=== PATIENT | male | born 1950 | race Caucasian/White ===

== ENCOUNTER 2016-06-03 10:40 | Inpatient (IN) | payer MEDICARE, OTHER ==
--- NOTE | ~2016-06-03 | EKG ---
PATIENT: RACHAEL FABIAN UNIT #: [id number] Ventricular Rate: 80 BPM Atrial Rate: 80 BPM P-R Interval: 170 ms QRS Duration: 150 ms Q-T Interval: 440 ms QTC Calculation(Bezet): 507 ms P [place]: 71 degrees Calculated R [place]: -142 degrees Calculated T [place]: 21 degrees Diagnosis Line: Sinus rhythm with nonconducted P waves Diagnosis Line: Right bundle branch block Diagnosis Line: Left anterior fascicular block Diagnosis Line: Abnormal ECG Diagnosis Line: No previous ECGs available Diagnosis Line: Confirmed by GORGE PANCHAL MD ([id number]) on Diagnosis Line: 06/04/2016 6:45:40 AM INTERPRETING MD: SHANNEN
--- NOTE | ~2016-06-03 | DS ---
Unit #: [id number] #: [id number] Patient: RACHAEL FABIAN [id number] [address] [address] [id number] I MR#: [id number] NAME: RACHAEL FABIAN. ROOM: 327 Age: 65 Sex: M Admission Date: 06/03/2016 : 1950 Discharge Date: Attending Physician: Sari Vasquez M.D. Primary Care Physician: Brigida Epps M.D. DISCHARGE SUMMARY DISCHARGE DIAGNOSES 1. Acute on chronic hypoxic respiratory failure. 2. Chronic obstructive pulmonary disease with exacerbation. 3. Bilateral leg cellulitis with venostasis. 4. Mild hyponatremia. 5. Hypertension uncontrolled. 6. Diabetes mellitus type 2 uncontrolled. 7. Smoking. CONSULTANTS None. PROCEDURES None. DIAGNOSTIC STUDIES LABORATORY DATA: Glucose 78, sodium 136, potassium 4.1, creatinine 0.5, WBC 12.3, hemoglobin 13.6, platelets 183. IMAGING STUDIES: Chest x-ray shows no acute cardiopulmonary disease. ALLERGIES Tomatoes. DISCHARGE MEDICATIONS 1. Albuterol two puffs inhalation 3 times daily p.r.n. shortness of breath. 2. Albuterol mini-nebs inhalation 3 times daily. 3. Losartan/hydrochlorothiazide 100/25 tablet p.o. daily. 4. Metformin 500 p.o. daily. 5. Nicotine 21 mg transdermal [id number]-[id number]. 6. Hydralazine 25 p.o. b.i.d. 7. Prednisone tapering dose. 8. Doxycycline 100 p.o. b.i.d. for three more days. HOSPITAL COURSE 65-year-old admitted because of shortness of breath and acute on chronic hypoxic respiratory failure presented on admission. Patient has COPD and currently he is on three L. I am going to check home O2 evaluation. COPD with exacerbation: Stated on IV Solu-Medrol and DuoNeb. Continue with prednisone tapering dose and albuterol. According to patient he cannot afford Symbicort or Advair. He does not want me to give any prescriptions. He wants to follow Dr. Epps as an outpatient. Unit #: [id number] #: [id number] Patient: RACHAEL FABIAN Bilateral cellulitis: No open wound. No cultures. Patient received clindamycin. I am going to discharge him on doxycycline, which can help him with COPD also. Hypertension uncontrolled: Added hydralazine. Diabetes mellitus, type 2 uncontrolled: Continue his metformin. He has low sugars, so I am not going to give him glimepiride for now. DISPOSITION Discharge home. DISCHARGE INSTRUCTIONS Check home O2 needs. He does take 2 L at nighttime. Follow with family physician in one week time. Dictated by... Kyung Bennett/tatiana TD: 06/06/2016 12:50 JOB #: [id number] DISCHARGE SUMMARY Page 1 of 1 X Sari Vasquez MD X DISCHARGE SUMMARY
--- NOTE | ~2016-06-03 | HP ---
Unit #: [id number] #: [id number] Patient: RACHAEL FABIAN [id number] [address] [address] [id number] I MR#: [id number] NAME: RACHAEL FABIAN. ROOM: 46867 Age: 65 Sex: M Admission Date: 06/03/2016 : 1950 Attending Physician: Ministerio Chao M.D. Primary Care Physician: Brigida Epps M.D. HISTORY AND PHYSICAL CHIEF COMPLAINT Shortness of breath and feet swelling. HISTORY OF PRESENT ILLNESS The patient is a 65-year-old male with a history of diabetes mellitus and COPD on home oxygen two liters at night and active smoking. The patient was brought to the emergency room from the PCP office. The patient stated the patient has been having leg swelling associated with redness and pain on the bilateral lower extremities. The patient stated it started last Monday initially from the left leg and then went into the right leg. The patient went to the PCP office earlier today and was found to have shortness of breath with respiratory distress with 88% saturation at room air. The patient is being admitted for the above reason. The patient denies any nausea, vomiting, fever, chills, trauma or any insect bite. PAST MEDICAL HISTORY History of hypertension, diabetes, COPD. PAST SURGICAL HISTORY Right knee surgery. SOCIAL HISTORY The patient smokes two and a half packs per day. The patient denies any alcohol or any illicit drug abuse. FAMILY HISTORY Reviewed and none. ALLERGIES Tomato. HOME MEDICATION 1. Metformin. 2. Glimepiride. 3. Losartan/hydrochlorothiazide. 4. Albuterol. REVIEW OF SYSTEMS A 14-point review of systems was performed and only pertinent positive findings are described above. Remaining are negative. PHYSICAL EXAMINATION GENERAL APPEARANCE: The patient is lying on the bed, not in acute distress. Unit #: [id number] #: [id number] Patient: RACHAEL FABIAN VITAL SIGNS: Temperature 97.4. Pulse 88. Respiratory rate 18. Blood pressure 146/68. Sating 88% at room air. HEENT: Head: Atraumatic, normocephalic. ENT: Pupils equal, round and reactive to light and accommodation. Extraocular movements are intact. NECK: Supple. Decreased air entry at the bases. HEART: Regular rate and rhythm. ABDOMEN: Soft. Positive bowel sounds. EXTREMITIES: Positive for venostasis bilateral lower extremities with minimal erythema and swelling of the left leg more compared to the right. NEUROLOGIC: Alert, awake, oriented. No gross focal motor deficit. DIAGNOSTIC STUDIES LABORATORY: Chemistry: Glucose 78, BUN 17, creatinine 0.8, sodium 132, potassium 4, chloride 93, bicarb 30, calcium 8.9, total protein 7.4, total bilirubin one, AST 15, ALT 13, alkaline phosphatase 66. BNP 46. INR is one. Troponin less than 0.05. WBC 9.3, hemoglobin 14.8, hematocrit 44.6, platelets 201. IMAGING: Chest x-ray shows no acute cardiopulmonary findings. No appreciable changes from 12/28/2014. ASSESSMENT 1. COPD exacerbation. 2. Cellulitis. 3. Venostasis. 4. Hyponatremia. PLAN To admit the patient to observation with telemetry. Continue with IV steroids, Solu-Medrol 40 mg q.8, IV antibiotics with clindamycin 500 mg q.8. Check the inflammatory markers, [employer], CRP. Continue with sliding scale and Accu-Cheks and continue with DuoNeb q.4 p.r.n. Nicotine patch for the smoking and further recommendations following as more lab results are available. Dictated by Kyung Adams TD: 06/03/2016 14:15 JOB #: [id number] HISTORY AND PHYSICAL Page 1 of 1 X X HISTORY AND PHYSICAL
--- NOTE | ~2016-06-03 | CR72 ---
[facility] A Service of [facility] & [facility] RADIOLOGY TEXT RESULTS PATIENT: RACHAEL FABIAN LOCATION: [facility] [id number] : [birth year] UNIT #: [id number] AGE: [address]: DONAVON SANCHEZ MD SEX: M ORDER DR: [id number] [facility] [address] [place], [place] [address] [id number] MR#: [id number] Acc #: [id number] NAME: RACHAEL FABIAN : 1950 SEX: M STUDY DATE/TIME: 06/03/2016 10:34 UNIT: [facility] ROOM: STUDY DESCRIPTION: CR Chest Single View Portable Attending Physician: Rachael Grewal M.D. Ordering Physician: Rachael Grewal M.D. Primary Care Physician: Brigida Epps M.D. MEDICAL IMAGING REPORT This report is preliminary unless electronic signature is present EXAM Chest portable, 06/03/2016 10:34 hours HISTORY 65-year-old man complaining of shortness of air today with bilateral leg swelling and redness. History of hypertension and COPD. COMPARISON 12/29/2014 FINDINGS 2 portable upright views of the chest demonstrate normal heart size. The mediastinal, hilar, and aortic contours are normal. The lungs demonstrate no acute pulmonary density or pleural effusion. IMPRESSION No acute cardiopulmonary findings. No appreciable change from 12/29/2014. Dictated by... Ioana Hurd M.D. THIS IS AN ELECTRONICALLY VERIFIED REPORT Ioana Hurd M.D. at 06/03/2016 2:32 PM Jose Luis TD: 06/03/2016 11:24 JOB #: [id number] MEDICAL IMAGING REPORT Page 1 of 1 COPY
[~2016-06-03 10:40] MED LIST: ASPIRIN; BACTRIM DS TABL1 TA1 PO; KEFLEX500 MG PO; LORTAB 5/500 TA1 TA1 PO; METFORMIN; METFORMIN HCL500 M1 PO; NO MEDICATIONS; ZOCOR
[2016-06-03 11:16] LABS: POC - CKMB 1.4 ng/mL (0.0-7.9); POC - TROPONIN <0.05 ng/mL (<=0.05)
[2016-06-03 11:16] LABS: BASOPHIL# 0.1 X10e3 (0-0.3); BASOPHIL% 0.6 % (0-2.5); EOSINOPHIL# 0.1 X10e3 (0-0.7); EOSINOPHIL% 1.5 % (0.0-7.0); HEMATOCRIT 44.6 % (38.0-50.0); HEMOGLOBIN 14.8 gm/dL (13.0-16.0); LYMPHOCYTE# 1.8 X10e3 (1.0-3.5); LYMPHOCYTE% 19.6 % (17.0-45.0); MEAN CORPUSCULAR HEMOGLOBIN 30.2 PG (28-34); MEAN CORPUSCULAR HGB CONC 33.1 g/dL (30-36); MEAN PLATELET VOLUME 9.1 FL (6.5-11.5); MONOCYTE% 11.3 % (3.0-12.0); NEUTROPHIL# 6.2 X10e3 (1.5-7.1); PLATELET COUNT 201 X10e3 (140-420); RED CELL DISTRIBUTION WIDTH 16.1 % (11.0-15.5); WHITE BLOOD COUNT 9.3 X10e3 (4.0-10.5)
[2016-06-03 11:17] LABS: DIFF IND NO
[2016-06-03] MEDS ORDERED: GLIMEPIRIDE2 MG PO (11:22)
[2016-06-03] MEDS ORDERED: METFORMIN HCL500 M1 PO (11:22)
[2016-06-03] MEDS ORDERED: LOSARTAN-HCTZ1 EAC3 PO (11:23)
[2016-06-03] MEDS ORDERED: ALBUTEROL17 GM INH (11:23)
[2016-06-03 11:29] LABS: PROTHROMBIN TIME (PATIENT) 10.7 SECONDS (9.6-11.5)
[2016-06-03 11:30] LABS: PARTIAL THROMBOPLASTIN TIME 31.3 SECONDS (23.5-31.3)
[2016-06-03 11:52] LABS: ALBUMIN SERUM 3.5 g/dL (3.5-5.0); BILIRUBIN, DIRECT 0.2 mg/dL (0.0-0.2); BILIRUBIN,INDIRECT 0.8 mg/dL (0.0-0.9); BUN/CREATININE RATIO 21.25; CALCIUM SERUM 8.9 mg/dL (8.4-10.2); CREATININE SERUM 0.8 mg/dL (0.6-1.4); GLOM FILT RATE Estimated 93.8 mL/min (>60); PROTEIN TOTAL SERUM 7.4 g/dL (6.0-8.3)
[2016-06-03 12:52] LABS: POC - TROPONIN <0.05 ng/mL (<=0.05)
[2016-06-04 08:13] LABS: HEMATOCRIT 40.1 % (38.0-50.0); HEMOGLOBIN 13.2 gm/dL (13.0-16.0); MEAN CELL VOLUME 91.4 FL (83-96); MEAN CORPUSCULAR HGB CONC 32.9 g/dL (30-36); MEAN PLATELET VOLUME 9.4 FL (6.5-11.5); RED BLOOD COUNT 4.39 X10e (3.90-5.60); RED CELL DISTRIBUTION WIDTH 15.4 % (11.0-15.5); WHITE BLOOD COUNT 6.4 X10e3 (4.0-10.5)
[2016-06-04 08:47] LABS: BUN/CREATININE RATIO 23.75; CALCIUM SERUM 8.1 mg/dL (8.4-10.2); CREATININE SERUM 0.8 mg/dL (0.6-1.4); GLOM FILT RATE Estimated 93.8 mL/min (>60); POTASSIUM 5.1 mmol/L (3.5-5.1)
[2016-06-05 05:59] LABS: HEMATOCRIT 41.9 % (38.0-50.0); HEMOGLOBIN 13.4 gm/dL (13.0-16.0); MEAN CELL VOLUME 92.5 FL (83-96); MEAN CORPUSCULAR HEMOGLOBIN 29.5 PG (28-34); MEAN CORPUSCULAR HGB CONC 31.9 g/dL (30-36); MEAN PLATELET VOLUME 9.7 FL (6.5-11.5); RED BLOOD COUNT 4.53 X10e (3.90-5.60); RED CELL DISTRIBUTION WIDTH 15.6 % (11.0-15.5); WHITE BLOOD COUNT 8.7 X10e3 (4.0-10.5)
[2016-06-05 06:48] LABS: CALCIUM SERUM 8.4 mg/dL (8.4-10.2); CREATININE SERUM 0.7 mg/dL (0.6-1.4); GLOM FILT RATE Estimated 99.1 mL/min (>60); POTASSIUM 4.5 mmol/L (3.5-5.1)
[2016-06-06 07:19] LABS: HEMATOCRIT 42.4 % (38.0-50.0); HEMOGLOBIN 13.6 gm/dL (13.0-16.0); MEAN CELL VOLUME 92.3 FL (83-96); MEAN CORPUSCULAR HEMOGLOBIN 29.6 PG (28-34); MEAN PLATELET VOLUME 9.7 FL (6.5-11.5); RED BLOOD COUNT 4.59 X10e (3.90-5.60); RED CELL DISTRIBUTION WIDTH 15.5 % (11.0-15.5); WHITE BLOOD COUNT 12.3 X10e3 (4.0-10.5)
[2016-06-06 07:47] LABS: CALCIUM SERUM 8.7 mg/dL (8.4-10.2); CREATININE SERUM 0.5 mg/dL (0.6-1.4); GLOM FILT RATE Estimated 113.8 mL/min (>60); POTASSIUM 4.1 mmol/L (3.5-5.1)
[2016-06-06] MEDS ORDERED: NICOTINE1 EAC1 TD (12:27)
[2016-06-06] MEDS ORDERED: HYDRALAZINE HCL25 MG PO (12:28)
[2016-06-06] MEDS ORDERED: SYMBICORT INH (12:28)
[2016-06-06] MEDS ORDERED: DOXYCYCLINE HY100 M3 PO (12:29)
[2016-06-06] MEDS ORDERED: PREDNISONE PO (12:29)
== END 2016-06-06 15:49 | disposition home or self-care (01) | DRG 189 ==
LOC: CED 10:40 → CEDOF 12:36 → C3A PCU 18:23
PROVIDERS: Emergency Medicine; Internal Medicine
DX: J96.21 Acute and chronic respiratory failure with hypoxia (principal); J44.1 Chronic obstructive pulmonary disease with (acute) exacerbation; L03.115 Cellulitis of right lower limb; E87.1 Hypo-osmolality and hyponatremia; E11.65 Type 2 diabetes mellitus with hyperglycemia; Z99.81 Dependence on supplemental oxygen; L03.116 Cellulitis of left lower limb; I87.8 Other specified disorders of veins; I10 Essential (primary) hypertension; Z79.84 Long term (current) use of oral hypoglycemic drugs; F17.210 Nicotine dependence, cigarettes, uncomplicated; Z91.018 Allergy to other foods
CPT/HCPCS: 36415; 71010; 80048; 80076; 82553; 82947; 83880; 84484; 85025; 85027; 85610; 85652; 85730; 86140; 93005; 94640; 94760; 96365; 96375; 99285; J1650; J1815; J2920; J2930